=== PATIENT | male | born 1955 | race Two or more races ===

== ENCOUNTER 2018-09-10 11:03 | Emergency (ER) | payer BC, OTHER ==
[~2018-09-10] VITALS: Ht 182.9 cm; Wt 97.8 kg
[2018-09-10 11:05] VITALS: Ht 182.9 cm; Wt 97.8 kg
[2018-09-10] MEDS ORDERED: METO25TA4 PO (11:53)
[2018-09-10] MEDS ORDERED: LOSA25TA12 PO (11:54)
[2018-09-10] MEDS ORDERED: APIX5TAB PO (11:54)
[2018-09-10] MEDS ORDERED: ATOR40TA68 PO (11:54)
[2018-09-10] MEDS ORDERED: PANT40TA4 PO (11:54)
[2018-09-10] MEDS ORDERED: OMEG-135 PO (11:55)
[2018-09-10] MEDS ORDERED: ASPI-903 PO (11:55)
[2018-09-10] MEDS ORDERED: ERGO2000 PO (11:55)
[2018-09-10] MEDS ORDERED: CYAN500T46 PO (11:57)
--- NOTE | 2018-09-10 12:53 | ERD ---
ER Documentation Chief Complaint Chief Complaint CWP with cough, throat pain x 1 week HPI 63-year-old male presents the emergency department complaining of hemoptysis. Patient states that he had a significant cough without sputum production for a few days associated with a sore throat. After coughing "hard" he had a small amount of blood that was noted in his cough and his sputum. There was no severe hemoptysis and this stopped and went away after the one episode. He had no significant chest pain or shortness of breath associated with this. He also reports no fevers or chills. ROS All systems reviewed and are negative except as per history of present illness. Medications Home Meds Reported Medications Cyanocobalamin* (Vitamin B12*) 500 Mcg Tab, 1000 MCG PO DAILY, TAB 09/10/18 Aspirin* (Aspirin* Chew) 81 Mg Tab.chew, 81 MG PO DAILY, TAB.CHEW 09/10/18 Ergocalciferol (Vitamin D2) (VITAMIN D2) 2,000 Unit Tablet, 2000 UNIT PO DAILY, TAB 09/10/18 Wann-3 Fatty Acids/Fish Oil (Fish Oil 1,000 mg Capsule) 1 Each Capsule, 1 EACH PO BID, CAP 09/10/18 Losartan Potassium* (Losartan Potassium*) 25 Mg Tablet, 25 MG PO DAILY, TAB 09/10/18 Atorvastatin* (Atorvastatin*) 40 Mg Tablet, 40 MG PO QHS, #30 TAB 09/10/18 Pantoprazole* (Pantoprazole*) 40 Mg Tablet.dr, 40 MG PO AC BREAKFAST, TAB 09/10/18 Apixaban* (Eliquis*) 5 Mg Tablet, 5 MG PO BID, TAB 09/10/18 Metoprolol Tartrate* (Lopressor*) 25 Mg Tablet, 25 MG PO BID, #60 TAB 09/10/18 Allergies Allergies: Coded Allergies: No Known Drug Allergy (Verified Allergy, Mild, 08/26/08) PMhx/Soc History of Surgery: Yes (CABG) Anesthesia Reaction: No Hx Neurological Disorder: No Hx Respiratory Disorders: No Hx Cardiac Disorders: Yes (HTN, hyperlipidemia, CAD) Hx Psychiatric Problems: No Hx Miscellaneous Medical Probl: Yes (ulcer, anemia) Hx Alcohol Use: No Hx Substance Use: No Hx Tobacco Use: No Smoking Status: Never smoker FmHx Noncontributory for chief complaint Physical Exam Vitals Vital Signs Date Temp Pulse Resp B/P (MAP) Pulse Ox O2 O2 Flow FiO2 Time Delivery Rate 09/10/18 99.2 78 18 128/90 97 11:05 (103) Physical Exam GENERAL: The patient is well developed and appropriate for usual state of health in no apparent distress HEENT: Pupils equal, round, and reactive to light. EOMI. There is no scleral icterus. NECK: C-spine is soft and supple, there is no meningismus. There is no cervical lymphadenopathy. LUNGS: Clear to auscultation bilaterally. There are no rales, wheezes or rhonchi. HEART: Irregularly irregular rate and rhythm with no murmurs rubs or gallops ABDOMEN: Soft, non-tender, non-distended. There are bowel sounds in all four quadrants. No rebound or guarding. EXTREMITIES: There is no peripheral cyanosis or edema. No focal swelling or er ythema. NEURO: The patient moves all four extremities with 5/5 strength. Cranial nerves II - XII are intact. Normal gait. Alert and oriented SKIN: There is no apparent rash or petechiae. HEME/LYMPHATIC: There is no evidence of excessive bruising or lymphedema. PSYCHIATRIC: The patient does not appear anxious or depressed. Result Diagram: 09/10/18 1135 09/10/18 1136 Results 24 hrs Laboratory Tests Test 09/10/18 11:35 09/10/18 11:36 White Blood Count 10.7 10^3/ul Red Blood Count 4.78 10^6/ul Hemoglobin 13.8 g/dl Hematocrit 42.1 % Mean Corpuscular Volume 88.1 fl Mean Corpuscular Hemoglobin 28.9 pg Mean Corpuscular Hemoglobin Concent 32.8 g/dl Red Cell Distribution Width 13.0 % Platelet Count 265 10^3/UL Mean Platelet Volume 9.6 fl Immature Granulocytes % 0.400 % Neutrophils % 61.1 % Lymphocytes % 28.9 % Monocytes % 7.0 % Eosinophils % 1.9 % Basophils % 0.7 % Nucleated Red Blood Cells % 0.0 /100WBC Immature Granulocytes # 0.040 10^3/ul Neutrophils # 6.5 10^3/ul Lymphocytes # 3.1 10^3/ul Monocytes # 0.8 10^3/ul Eosinophils # 0.2 10^3/ul Basophils # 0.1 10^3/ul Nucleated Red Blood Cells # 0.0 10^3/ul Prothrombin Time 15.2 Sec Prothrombin Time Ratio 1.2 INR International Normalized Ratio 1.19 Activated Partial Thromboplast Time 36.0 Sec Sodium Level 141 mmol/L Potassium Level 4.2 mmol/L Chloride Level 104 mmol/L Carbon Dioxide Level 26 mmol/L Anion Gap 11 Blood Urea Nitrogen 17 mg/dl Creatinine 0.84 mg/dl Est Glomerular Filtrat Rate mL/min > 60 mL/min Glucose Level 106 mg/dl Calcium Level 9.6 mg/dl Troponin I < 0.012 ng/ml Procedures/MDM Patient was taken to a room, seen and evaluated. Comfort measures were initiated. Diagnostic tests were ordered and reviewed. 3 LEAD RHYTHM STRIP: A. fib with controlled ventricular response EK lead EKG reviewed by myself: Atrial fibrillation with controlled ventricular response Normal [place] and intervals No ST elevation, depression, or T wave inversion. Nonspecific ST and T wave changes without ST elevation Impression: Normal EKG RADIOLOGY: Reviewed with the radiologist REEVALUATION: 1245: Diagnostic tests were appreciated and discussed with the patient. He remained clinically stable in the emergency room and felt comfortable being discharged home for follow-up with his outpatient physician. [employer] DECISION MAKIN-year-old male with a known history of underlying atrial fibrillation, on Eliquis, presents with mild hemoptysis. From the standpoint of the hemoptysis, his chest x-ray demonstrates no mass or pneumonia, his hemoglobin is normal and his history is most consistent with a mild hemoptysis related to the cough. Patient denies any chest pain or shortness of breath and tells me that he just recently, within the last few weeks, had a significant cardiac evaluation including nuclear stress testing and an echocardiogram, which demonstrated no significant ischemic findings. Overall, the patient looks and feels clinically well without evidence of shortness of breath, hypoxemia or other high-risk pulmonary concerns and seems appropriate for outpatient supportive care at this time. Departure Diagnosis: Primary Impression: Hemoptysis Additional Impression: Atrial fibrillation Condition: Stable Patient Instructions: Hemoptysis Additional Instructions: See your doctor for follow-up as discussed. Take a copy of your test results, if appropriate, to this follow-up visit. See your doctor or return here if your symptoms do not improve as expected. At any time, please return to the emergency department for any change or worsening in her symptoms. VINNY WHITT Sep 10, 2018 12:53
[2018-09-10 13:10] VITALS: BP 142/88; PULSE 68; RESP 16
== END 2018-09-10 15:28 | disposition home or self-care (01) ==
LOC: E/R 11:03
DX: R04.2 Hemoptysis (principal); I10 Essential (primary) hypertension; I25.10 Atherosclerotic heart disease of native coronary artery without angina pectoris; I48.91 Unspecified atrial fibrillation; Z79.82 Long term (current) use of aspirin; Z95.1 Presence of aortocoronary bypass graft
CPT/HCPCS: 36415; 71045; 80048; 84484; 85025; 85610; 85730; 93005; Z7502